=== PATIENT | male | born 1990 | race Caucasian/White ===

== ENCOUNTER 2017-01-20 12:27 | Emergency (ER) | payer OTHER ==
[~2017-01-20] VITALS: Ht 160 cm; Wt 83.0 kg
[2017-01-20 12:39] VITALS: BP 130/76
[2017-01-20 13:41] LABS: HEMATOCRIT 47.5 % (39.2-51.8); HEMOGLOBIN 15.6 g/dL (13.7-18.0); WHITE BLOOD COUNT 14.7 x10^3/uL (3.4-10)
[2017-01-20 13:48] LABS: BLOOD UREA NITROGEN 9 mg/dL (7-18)
[2017-01-20] MEDS ORDERED: SODIUM CHLORIDE FLUSH 10ML SYR IVF ONE (15:30)
[2017-01-20] MEDS ORDERED: KETOROLAC 30 MG/1 ML IVPush ONE (15:30)
[2017-01-20 15:41] LABS: PATH.CAST-FLAG NOT PRESENT; SPERM-FLAG NOT PRESENT; SRC-FLAG NOT PRESENT; XTAL-FLAG NOT PRESENT; YLC-FLAG NOT PRESENT
== END 2017-01-20 16:51 | disposition home or self-care (01) ==
LOC: ED 16:45
DX: N20.0 Calculus of kidney (principal); Z87.891 Personal history of nicotine dependence; Z98.84 Bariatric surgery status
CPT/HCPCS: 36415; 74176; 80048; 81001; 82040; 85025; 99285